=== PATIENT | male | born 1940 | race Caucasian/White ===

== ENCOUNTER 2019-03-27 13:51 | Outpatient (CLI) | payer OTHER ==
--- NOTE | 2019-03-27 14:25 | RAD ---
Exam: XR Foot Rt 3 View STANDARD HISTORY: Pain lateral aspect right foot. Patient heard a pop 6 weeks ago. COMPARISON: None FINDINGS: There is mild deformity involving the distal aspect proximal phalanx right small toe likely due to pr ior injury. 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 Posterior and plantar calcaneal enthesophytes are seen. No acute fracture, dislocation, or other acute osseous abnormality is identified. IMPRESSION: No acute osseous abnormality is identified.
== END 2019-03-27 13:52 | disposition home or self-care (01) ==
LOC: BICRAD 13:51
PROVIDERS: ATTEND Podiatrist
DX: M79.671 Pain in right foot (principal)

== ENCOUNTER 2020-05-20 10:44 | Outpatient (CLI) | payer OTHER ==
[~2020-05-20 10:44] MED LIST: Iopamidol-370 76% 500 ML 1 ML ONE
[2020-05-20 11:06] LABS: Estimated GFR-MDRD - POC Greater than 90
--- NOTE | 2020-05-20 11:48 | CT ---
EXAM: CT ANGIOGRAM OF THE NECK INDICATION: Evaluate for carotid stenosis COMPARISON: None TECHNIQUE: CT angiogram of the neck are performed in the axial plane. Three-dimensional reformatted i mages are submitted for interpretation. FINDINGS: POSTCONTRAST SOFT TISSUE NECK CT: Aerodigestive tract:Aerodigestive tract is patent. No mucosal abnormality. Sinuses: Partial opacification of the paranasal sinuses.. Orbits: Bilateral ocular lens implants are appropriately located. Both globes are intact. Retrobulbar fat is preserved. Symmetric attenuation the optic nerves and ocular rectus muscles. Salivary glands:Symmetric attenuation. Thyroid gland: Unremarkable. Lymph nodes: No evidence of lymphadenopathy by size criteria. Paraspinal muscles: Symmetric attenuation of the sternocleidomastoid muscles. Appropriate attenuation of the paraspinal muscles. Cervical spine:Vertebral body height is maintained. No fracture. Mild loss of disc space height with disc osteophyte complex at C6-C7. Moderate central canal stenosis. Moderate to severe bilateral neural foraminal narrowing. Upper mediastinum and lung apices: Chronic changes. CTA OF THE NECK WITH CONTRAST: Aorta: Appropriate enhancement and luminal diameter. Right carotid artery: Appropriate enhancement and luminal diameter of the origin of the carotid arter y, and common carotid artery. There is calcified and noncalcified plaque in the right carotid bifurcation. There is resultant 50% stenosis. There is calcified plaque in the proximal internal yin tid artery without significant stenosis. Left carotid: Appropriate enhancement and luminal diameter of the origin of the left carotid artery. There is appropriate enhancement and luminal diameter of the common carotid artery, carotid bifurcation and internal carotid artery. Minimal atherosclerotic disease. Subclavian arteries:Symmetric and patent. Vertebral arteries:Patent throughout their course in the neck. Minimal calcification at the origin of the right vertebral artery. 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 There is 50% stenosis based upon NASCET criteria. Transcribed Date/Time: 05/20/2020 11:56 AM
== END 2020-05-20 10:45 | disposition home or self-care (01) ==
LOC: BICCT 10:44
PROVIDERS: ATTEND Internal Medicine Cardiovascular Disease
DX: I65.23 Occlusion and stenosis of bilateral carotid arteries (principal)
CPT/HCPCS: 70498; 82565; Q9967

== ENCOUNTER 2020-06-20 18:59 | Outpatient (CLI) | payer OTHER ==
[2020-06-20 19:29] LABS: #Basophils 0.1 10x3/uL (0.0-0.2); #Eosinphils 0.3 10x3/uL (0.0-0.5); #Neutrophils 5.7 10x3/uL (1.5-8.4); %Basophils 0.8 % (0.0-2.0); %Lymphocytes 25.5 % (18.0-47.0); %Monocytes 10.2 % (0.0-10.0); %Neutrophils 60.1 % (40.0-75.0); Mean Corpuscular HGB CONC 33.9 g/dL (32.0-36.0); Mean Corpuscular Hemoglobin 31.4 pg (27.0-33.0); Mean Corpuscular Volume 92.5 fl (81.2-95.1); Mean Platelet Volume 10.3 fl (7.4-10.4); Platelet Count 311 10x3/uL (150-450); RBC Distribution Width 11.7 % (11.5-14.5); Red Blood Cell (RBC) Count 4.14 10x6/uL (4.32-5.72); White Blood Cell (WBC) Count 9.5 10x3/uL (3.5-10.5)
[2020-06-20 19:40] LABS: Anion Gap 12 mmol/L (10-20); BUN (Urea Nitrogen) 10 mg/dL (8.4-25.7); Calc. Creatinine Clearance 0 mL/min (70-130); Calcium 9.6 mg/dL (7.8-10.44); Carbon Dioxide 31 mmol/L (23-31); Chloride 93 mmol/L (98-107); Glucose 166 mg/dL (83-110); PTT 31.4 sec (22.0-33.0); Potassium 4.5 mmol/L (3.5-5.1); Prothrombin Time 10.8 sec (9.5-12.1); Sodium 131 mmol/L (136-145)
[2020-06-21 04:34] LABS: SARS-CoV-2 PCR by NAA Not Detected (NotDetected)
== END 2020-06-20 19:00 | disposition home or self-care (01) ==
LOC: LABBT 18:59
PROVIDERS: ATTEND Internal Medicine Cardiovascular Disease
DX: Z01.818 Encounter for other preprocedural examination (principal); Z20.822 Contact with and (suspected) exposure to COVID-19
CPT/HCPCS: 80048; 85025; 85610; 85730; 87635; 93005; 93010; U0003; U0005

== ENCOUNTER 2022-02-05 09:26 | Outpatient (CLI) | payer OTHER ==
[2022-02-05] MEDS ORDERED: Iopamidol 370 76% 100 ML VIAL ONE (14:02)
== END 2022-02-05 09:27 | disposition home or self-care (01) ==
LOC: CT 09:26
PROVIDERS: ATTEND Internal Medicine Cardiovascular Disease
DX: I65.23 Occlusion and stenosis of bilateral carotid arteries (principal)
CPT/HCPCS: 70498; 82565; Q9967